=== PATIENT | female | born 1980 | race Caucasian/White ===

== ENCOUNTER → 2024-04-06 16:25 | Outpatient (REF) | payer OTHER, SELFPAY | LOC: HWWDC 16:25 | PROVIDERS: ATTENDING PHYSICIAN Obstetrics & Gynecology Gynecology; FAMILY PHYSICIAN Internal Medicine Cardiovascular Disease | DX: Z12.31 Encounter for screening mammogram for malignant neoplasm of breast (principal) | CPT/HCPCS: 77063; 77067 ==

== ENCOUNTER → 2025-03-08 09:07 | Outpatient (REF) | payer OTHER, SELFPAY | LOC: MRI 3T 09:07 | PROVIDERS: FAMILY PHYSICIAN Internal Medicine | DX: Z91.89 Other specified personal risk factors, not elsewhere classified (principal); Z80.3 Family history of malignant neoplasm of breast; Z12.39 Encounter for other screening for malignant neoplasm of breast | CPT/HCPCS: 77049; A9585 ==

== ENCOUNTER 2025-04-11 06:26 | Day surgery (SDC) | payer OTHER, SELFPAY | END 2025-04-11 09:27 | disposition home or self-care (01) | LOC: GI 06:26 | PROVIDERS: ATTENDING PHYSICIAN Internal Medicine | DX: Z12.11 Encounter for screening for malignant neoplasm of colon (principal); K64.8 Other hemorrhoids | CPT/HCPCS: G0121 ==